=== PATIENT | female | born 1950 | race African-American/Black ===

== ENCOUNTER → 2017-06-29 | Outpatient (CLI) | payer OTHER ==
[~2017-06-29] MED LIST: CARBAMOXIDE15 ML OT; FLONASE 0.05%50 MCG NASAL; HYDROCHLOROTHIA25 M1 PO; MEDROL DOSPAK21 TAB PO; MEDROLDOSEPACK PO; NAPROSYN500 MG PO; NOHOMEMEDICATIONS; NORCO 7.5-3251 EACH PO; POTASSIUM20 PO; TUSSIONEX PENN473 ML PO; VENTOLIN HFA 1818 GM INH; ZOFRAN4 MG PO; ZPAK PO
--- NOTE | ~2017-06-29 | 2DMMODE ---
[facility] [employer] [place] [address] 2 D/M-MODE ECHOCARDIOGRAM Name: YASH BRYANTTTSp LOU Room #: REG [facility]#: [id number] Admission: 06/29/17 Attend Phys: FELIPA Veloz Discharge: Date of : 48 Date of Service: 06/29/17 1552 Report #: [id number] THIS REPORT FOR: //name// APPROVED REPORT Study performed: 06/29/2017 14:58:16 EXAM: Comprehensive 2D, Doppler, and color-flow Echocardiogram Patient Location: Echo lab Status: routine BSA: 1.75 BP: 131/90 mmHg Other Information Study Quality: Adequate Indications Arrhythmia Palpitations 2D Dimensions RVDd: 34.83 mm LVEF(%): 53.58 (>50%) IVSd: 10.55 (7-11mm) LVOT Diam: 19.48 (18-24mm) LVDd: 37.16 mm PWd: 10.65 (7-11mm) Ascending Ao: 30.82 (22-36mm) LVDs: 27.10 (25-40mm) Aortic Root: 25.50 mm IVC: 7.00 mm Jain's LVEF: 53.58 % Volumes Left Atrial Volume (Systole) Single Plane 4CH: 13.92 mL Single Plane 2CH: 20.02 mL LA ESV Index: 11.00 mL/m2 Aortic Valve AoV Peak Can.: 1.36 m/s AO Peak Gr.: 7.44 mmHg LVOT Max P.43 mmHg LVOT Max V: 0.93 m/s JONA Vmax: 2.02 cm2 Mitral Valve E/A Ratio: 0.6 MV Decel. Time: 205.65 ms [facility] [address] [address] 2 D/M-MODE ECHOCARDIOGRAM Name: LOU BRYANT Room #: [facility]#: [id number] Admission: 06/29/17 Attend Phys: FELIPA Veloz Discharge: Date of : 48 Date of Service: 06/29/17 1552 Report #: [id number] MV E Max Can.: 0.55 m/s MV A Can.: 0.87 m/s MV PHT: 59.64 ms IVRT: 128.03 ms Pulmonary Valve PV Peak Can.: 0.83 m/s PV Peak Gr.: 2.78 mmHg Pulmonary Vein P Vein S: 0.74 m/s P Vein A: 0.20 m/s P Vein D: 0.40 m/s P Vein A Dur.: 107.3 msec P Vein S/D Ratio: 1.85 Tricuspid Valve TR Peak Can.: 2.37 m/s RAP Estimate: 5.00 mmHg TR Peak Gr.: 22.38 mmHg Left Ventricle The left ventricle is normal size. There is normal left ventricular wall thickness. The left ventricular systolic function is normal. The left ventricular ejection fraction is within the normal range. LVEF is 55-60%. Mild diastolic dysfunction is present (impaired relaxation pattern). Right Ventricle The right ventricle is normal size. The right ventricular systolic function is normal. Atria The left atrium size is normal. The right atrium size is normal. Aortic Valve The aortic valve is normal in structure. No aortic regurgitation is present. There is no aortic valvular stenosis. Mitral Valve The mitral valve is normal in structure. There is no mitral valve regurgitation noted. No evidence of mitral valve stenosis. Tricuspid Valve The tricuspid valve is normal in structure. There is mild tricuspid regurgitation. The right atrial pressure is estimated at 5 mmHg. PAP is estimated at 27 mmHg. Pulmonic Valve [address] [address] 2 D/M-MODE ECHOCARDIOGRAM Name: ANNETTELOU LOU Room #: REG CL [facility]#: [id number] Admission: 06/29/17 Attend Phys: FELIPA Veloz Discharge: Date of : 48 Date of Service: 06/29/17 1552 Report #: [id number] The pulmonary valve is normal in structure. Trace to mild pulmonic regurgitation. Great Vessels The aortic root is normal in size. IVC is normal in size and collapses >50% with inspiration. <Conclusion> The left ventricle is normal size. There is normal left ventricular wall thickness. The left ventricular systolic function is normal. Mild diastolic dysfunction is present (impaired relaxation pattern). The right ventricle is normal size. The left atrium size is normal. There is no aortic valvular stenosis. The mitral valve is normal in structure. There is mild tricuspid regurgitation. The right atrial pressure is estimated at 5 mmHg. PAP is estimated at 27 mmHg. <ELECTRONICALLY SIGNED> By: Jimy Monge MD 06/29/17 1552 155 155 Jimy Monge MD /INF
== END ==
LOC: CV 10:34
DX: I50.30 Unspecified diastolic (congestive) heart failure (principal); I07.1 Rheumatic tricuspid insufficiency; I49.9 Cardiac arrhythmia, unspecified

== ENCOUNTER 2019-01-11 07:32 | Emergency (ER) | payer OTHER ==
[~2019-01-11] VITALS: Ht 165.1 cm; Wt 60.3 kg
[~2019-01-11 07:32] MED LIST changes: +DOXYCYCLINE 10100 MG PO; +ELIQUIS5 MG PO; +OXYCODONE HCL 55 MG PO; +TOPROL XL25 MG PO
[2019-01-11 08:11] LABS: HEMATOCRIT 41.5 % (37.0-47.0); HEMOGLOBIN 14.2 gm/dL (12.0-15.0); MCH 28.7 pg (26.0-34.0); MCHC 34.3 g/dL (28.0-37.0); MCV 83.5 fL (80.0-100.0); PLATELET COUNT 200 thou/uL (150-400); RBC 4.97 mil/uL (4.20-5.00); RDW 13.3 % (10.5-14.5); WBC 2.3 thou/uL (4.0-11.0)
[2019-01-11 08:18] LABS: ANION GAP 8 mmol/L (7-16); BUN 11 mg/dL (7-18); CHLORIDE 102 mmol/L (98-107); CO2 29 mmol/L (21-32); GLUCOSE 107 mg/dL (74-106); POTASSIUM 3.3 mmol/L (3.5-5.1); SODIUM 139 mmol/L (136-145)
[2019-01-11 08:27] LABS: TROPONIN-I <0.06 ng/mL (<0.06)
[2019-01-11 08:39] LABS: PLATELET ESTIMATE NORMAL
[2019-01-11 09:15] VITALS: BP 97/66
--- NOTE | 2019-01-11 17:26 | EKG ---
[place] [address] [facility] [place] [address] ELECTROCARDIOGRAM REPORT Name: LOU BRYANT [id number] ������������������ Admission: 01/11/19 ������������������ Attend Phys: Discharge: 01/11/19 ������������������ Date of : 48 Report #: [id number] ����������������������������������������������������������������� [id number] THIS REPORT FOR: //name// [facility] ED Test Date: 2019-01-11 Test Time: 08:23:56 Pat Name: LOU BRYANT Department: Room: Gender: F Therapeutic Recreation Assistant: JOSE : 1950 Requested By: Lakhwinder Tripp Order Number: [id number] MD: Moises Cui Measurements Intervals [place] Rate: 88 P: 56 CO: 167 QRS: 7 QRSD: 79 T: -12 QT: 327 QTc: 396 Interpretive Statements Sinus rhythm Abnormal R-wave progression, early transition Borderline T abnormalities, inferior leads Compared to ECG 09/17/2014 15:52:39 No significant change was found Electronically Signed On 01-11-2019 17:26:40 OPERATOR SPECIALIST COMMUNICATIONS by Moises Cui [email or web address] ��������������������������������������������� <ELECTRONICALLY SIGNED> ���������������������������������������� By: Moises Cui MD, [facility] ��������������������������������������������� 01/11/19 1726 0823 08 Moises Cui MD, [facility] /EPI
== END 2019-01-11 09:16 | disposition home or self-care (01) ==
LOC: ER 07:32
PROVIDERS: Emergency Medicine
DX: B34.9 Viral infection, unspecified (principal); I10 Essential (primary) hypertension; Z90.710 Acquired absence of both cervix and uterus; Z88.6 Allergy status to analgesic agent

== ENCOUNTER → 2019-04-12 | Outpatient (CLI) | payer OTHER | LOC: BC 08:38 | DX: Z12.31 Encounter for screening mammogram for malignant neoplasm of breast (principal) ==

== ENCOUNTER → 2019-07-25 | Outpatient (CLI) | payer OTHER ==
[~2019-07-25] VITALS: Ht 165.1 cm; Wt 62.1 kg
--- NOTE | 2019-07-27 10:07 | PATH ---
[facility] [address] [place] [address] PATHOLOGY RPT PROCEDURE Name: MERCEDEZ BRYANT Room #: REG DANIN M.R.#: [id number] ������������������ Admission: 07/25/19 ������������������ Date of : 48 Discharge: Report #: [id number] Path Case #: [id number] [facility] Accession Number: [id number] . 01 Material submitted: . PART A: colon - POLYP AT TRANSVERSE COLON. Modifiers: transverse PART B: sigmoid colon - POLYP AT SIGMOID COLON . 01 Clinical history: . Pre-OP DX: Hx polyps Post-OP DX: Colon polyps . 02 Diagnosis: A. Polyp, transverse colon, endoscopic biopsy: - Tubular adenoma. - Negative for high-grade dysplasia. . B. Polyp, at sigmoid colon, endoscopic biopsy: - Hyperplastic polyp and lymphoid aggregate. - Negative for dysplasia. . (IUV:jose; 07/26/2019) MBR 07/26/2019 1544 Local . 02 Electronically signed: . Pooja Asencio MD, Pathologist NPI- [id number] . 01 Gross description: . A. Received in formalin labeled "Bryant, Mercedez, polyp at transverse colon," is a single segment of shell soft tissue measuring 0.5 cm in maximum dimension. The specimen is entirely submitted in cassette A1. . B. Received in formalin labeled "Bryant, Mercedez, polyp at sigmoid colon," is a single segment of shell soft tissue measuring 0.5 cm in maximum dimension. The specimen is entirely submitted in cassette B1. (TSD; 07/25/2019) TOB/TOB 07/25/2019 1753 Local . 02 Pathologist provided ICD-10: D12.3, K63.5 . 02 CPT . 968118, 720545 Specimen Comment: A courtesy copy of this report has been sent to Specimen Comment: [phone], . Specimen Comment: Report sent to / [place] [address] PATHOLOGY RPT PROCEDURE Name: MERCEDEZ BRYANT [facility] Room #: REG DANNI Sheppard#: [id number] ������������������ Admission: 07/25/19 ������������������ Date of : 48 Discharge: Report #: [id number] Path Case #: [id number] Performed at: [address], [place], [place] [id number] MD Joey Garza MD Phone: [phone] Performed at: [address] [id number] MD Pooja Asencio MD Phone: [phone]
== END | disposition home or self-care (01) ==
LOC: GI 09:59
DX: Z12.11 Encounter for screening for malignant neoplasm of colon (principal); D12.3 Benign neoplasm of transverse colon; K63.5 Polyp of colon; I10 Essential (primary) hypertension; Z90.710 Acquired absence of both cervix and uterus; Z98.890 Other specified postprocedural states; Z86.010 Personal history of colon polyps; Z87.442 Personal history of urinary calculi; Z79.899 Other long term (current) drug therapy; Z88.8 Allergy status to other drugs, medicaments and biological substances
CPT/HCPCS: 62110; 62900

== ENCOUNTER 2019-11-19 22:24 | Emergency (ER) | payer OTHER ==
[~2019-11-19] VITALS: Ht 165.1 cm; Wt 64.0 kg
[2019-11-19] MEDS ORDERED: HYDROCODON-ACE1 EAC8 PO (23:17)
[2019-11-20] MEDS ORDERED: VOLTAREN GEL 1100 G1 TOP (00:27)
[2019-11-20 00:34] VITALS: BP 147/64
== END 2019-11-20 00:46 | disposition home or self-care (01) ==
LOC: ER 22:24
DX: S43.491A Other sprain of right shoulder joint, initial encounter (principal); I10 Essential (primary) hypertension; Z90.710 Acquired absence of both cervix and uterus; Z88.6 Allergy status to analgesic agent; W18.39XA Other fall on same level, initial encounter; Y93.89 Activity, other specified; Y92.89 Other specified places as the place of occurrence of the external cause; Y99.8 Other external cause status

== ENCOUNTER → 2019-11-23 | Outpatient (CLI) | payer OTHER ==
[~2019-11-23] MED LIST changes: +HYDROCODON-ACE1 EAC8 PO; +VOLTAREN GEL 1100 G1 TOP
== END ==
LOC: ULTRA 12:16
DX: M79.89 Other specified soft tissue disorders (principal); M79.621 Pain in right upper arm

== ENCOUNTER → 2019-12-02 | Outpatient (CLI) | payer OTHER | LOC: ULTRA 12:49 | DX: G54.0 Brachial plexus disorders (principal); M79.89 Other specified soft tissue disorders ==

== ENCOUNTER → 2020-04-19 | Outpatient (CLI) | payer OTHER | LOC: RAD 08:08 | PROVIDERS: ATTEND Family Medicine | DX: Z12.31 Encounter for screening mammogram for malignant neoplasm of breast (principal) ==

== ENCOUNTER → 2020-05-01 | Outpatient (CLI) | payer OTHER | LOC: BC 08:55 | PROVIDERS: ATTEND Family Medicine | DX: N60.02 Solitary cyst of left breast (principal); N63.20 Unspecified lump in the left breast, unspecified quadrant ==

== ENCOUNTER 2020-09-25 14:52 | Emergency (ER) | payer OTHER ==
[~2020-09-25] VITALS: Ht 165.1 cm; Wt 61.7 kg
--- NOTE | 2020-09-25 15:53 | EKG ---
[facility] [place] [address] ELECTROCARDIOGRAM REPORT Name: LOU BRYANT Room #: PRE M.R.#: [id number] Admission: Attend Phys: Discharge: Date of : 48 Report #: [id number] THIS REPORT FOR: cc: Milton Alanis James A. DO Santiago, Patrick MD [facility] ~ THIS REPORT FOR: //name// [facility] ED Test Date: 2020-09-25 Test Time: 15:04:47 Pat Name: LOU BRYANT Department: Room: Gender: F Ignition Specialist: : 1950 Requested By: Lakhwinder Tripp Order Number: [id number] MD: Benji Reyna Measurements Intervals [place] Rate: 85 P: 49 [place]: 159 QRS: 15 QRSD: 75 T: 0 QT: 471 QTc: 561 Interpretive Statements Sinus rhythm Probable left atrial enlargement Borderline T abnormalities, diffuse leads Prolonged QT interval Baseline wander in lead(s) V2 Compared to ECG 01/11/2019 08:23:56 Prolonged QT interval now present T-wave abnormality still present Electronically Signed On 09-25-2020 15:53:42 OIL LEASE BROKER by Benji Reyna [email or web address] <ELECTRONICALLY SIGNED> By: Benji Reyna MD, FACC 09/25/20 1553 1504 1504 Benji Reyna MD, FACC /EPI
[2020-09-25 16:22] LABS: ABSOLUTE NEUTROPHILS 3.3 thou/uL (1.4-8.2); BASOPHILS 0.6 % (0.0-2.0); EOSINOPHILS 0.6 % (0.0-3.0); HEMATOCRIT 40.7 % (37.0-47.0); HEMOGLOBIN 13.6 gm/dL (12.0-15.0); LYMPHOCYTES 21.6 % (24.0-44.0); MCH 28.8 pg (26.0-34.0); MCHC 33.4 g/dL (28.0-37.0); MCV 86.1 fL (80.0-100.0); MONOCYTES 4.4 % (1.0-8.0); PLATELET COUNT 218 thou/uL (150-400); POLYS 72.8 % (36.0-66.0); RBC 4.72 mil/uL (4.20-5.00); RDW 13.6 % (10.5-14.5); WBC 4.5 thou/uL (4.0-11.0)
[2020-09-25 16:29] LABS: ANION GAP 3 mmol/L (7-16); BUN 14 mg/dL (7-18); CALCIUM 8.9 mg/dL (8.5-10.1); CHLORIDE 103 mmol/L (98-107); CO2 32 mmol/L (21-32); GLUCOSE 110 mg/dL (74-106); POTASSIUM 3.3 mmol/L (3.5-5.1); SODIUM 138 mmol/L (136-145)
[2020-09-25 16:35] LABS: APTT 24.5 Seconds (24.5-32.8); PROTIME 10.7 Seconds (9.3-11.4)
[2020-09-25 16:39] LABS: ALBUMIN 3.8 g/dL (3.4-5.0); SGOT 16 U/L (15-37); SGPT 15 U/L (30-65); TOTAL BILIRUBIN 0.3 mg/dL (0.2-1.0); TROPONIN-I <0.06 ng/mL (<0.06)
[2020-09-25] MEDS ORDERED: MECLIZINE HCL25 M1 PO (18:04)
[2020-09-25 18:36] VITALS: BP 144/82
== END 2020-09-25 18:37 | disposition home or self-care (01) ==
LOC: ER 14:52
PROVIDERS: Physician Assistant
DX: R42 Dizziness and giddiness (principal); I10 Essential (primary) hypertension; Z90.710 Acquired absence of both cervix and uterus; Z79.899 Other long term (current) drug therapy; Z88.6 Allergy status to analgesic agent

== ENCOUNTER 2020-10-08 16:37 | Inpatient (IN) | payer OTHER ==
[~2020-10-08] VITALS: Ht 165.1 cm; Wt 61.7 kg
--- NOTE | ~2020-10-08 | HC ---
[facility] [place] [address] CONSULTATION Name: LOU BRYANT Room #: 216-P [facility] M.R.#: [id number] Admission: 10/08/20 Attend Phys: Yves Kohli MD Discharge: 10/09/20 Date of : 48 Report #: [id number] THIS REPORT FOR: cc: Milton Alanis James A. DO Khosla, Parveen K. MD ~ DATE OF SERVICE: 10/09/2020 HISTORY OF PRESENT ILLNESS: This is a 70-year-old female patient who was evaluated by me for any neurological etiology for the patient's dizziness. I talked to the Emergency Room physician yesterday and in fact came to see this patient in the Emergency Room, but I was told that they need to see her. In any event, this patient as I understand from the Emergency Room physician was there a week ago, then came back, she was having dizziness. She was having some ambulation difficulty. Some question of nystagmus was noticed in this patient, but subsequently it was found that she does not have any nystagmus. I talked to the physical therapist. We looked at this patient and she indicated that the patient was able to walk reasonably well. The patient is complaining of some symptoms in the right ear. She said she had similar symptoms about 3 years ago and she had a pretty significant dizziness at that time and she also had some ear pain. As an evaluation, she had a CT angiogram of the head and neck. CT and MRI, they were reviewed and they were mostly unremarkable. REVIEW OF SYSTEMS: Positive for atrial fibrillation and she said she is on anticoagulation for that. She has a history of kidney stone, hysterectomy, hypertension, colonoscopy. That was a relevant 14-point review of system. PAST MEDICAL HISTORY: Positive for similar dizziness about 3 years ago associated with ear infection. FAMILY HISTORY: Unremarkable. SOCIAL HISTORY: She drinks alcohol only on special occasions. PHYSICAL EXAMINATION: NEUROLOGIC: Indicate that this patient is alert, responsive, able to follow simple and complex command. Her speech and concentration looks okay. Cranial nerve examination 2-12 looks unremarkable. I did not see any nystagmus. EXTREMITIES: She moves all 4 extremities. There is no loss of position sense. Reflexes are symmetrical. There is no cerebellar sign. There is no papilledema. There is no carotid bruit. Her pulses are palpable. She has no edema. CARDIAC: Examination is difficult to tell because she says she has paroxysmal atrial fibrillation. [address] [address] CONSULTATION Name: LOU BRYANT [facility] Room #: [address] [place] [address] [place] M.R.#: [id number] Admission: 10/08/20 Attend Phys: Yves Kohli MD Discharge: 10/09/20 Date of : 48 Report #: [id number] GENERAL: She is reasonably well-developed individual. She does not have any dysmorphic features of eyes, ears and face. VITAL SIGNS: Blood pressure is 135/76, respirations 18, pulse is 97, temperature is 98.6. LABORATORY DATA: White count is 7.4. Potassium was low, but it is better now. Imaging studies were reviewed and summarized above. IMPRESSION: It is unlikely there is any neurological etiology for the patient's dizziness. I do not think any further neurological workup is needed. I will suggest getting an ENT consult. I will also suggest working and management of systemic problem. We will sign off. Please let me know if further followup is needed. More than 50 minutes of time was spent taking care of this patient today and majority was spent counseling and coordinating. By: 1207 2208 Art Paul MD /nt
[2020-10-08 16:37] VITALS: BP 171/92
[~2020-10-08 16:37] MED LIST changes: +MECLIZINE HCL25 M1 PO
[2020-10-08 17:31] LABS: ABSOLUTE NEUTROPHILS 4.8 thou/uL (1.4-8.2); BASOPHILS 0.4 % (0.0-2.0); HEMATOCRIT 41.5 % (37.0-47.0); HEMOGLOBIN 13.8 gm/dL (12.0-15.0); LYMPHOCYTES 29.7 % (24.0-44.0); MCH 28.9 pg (26.0-34.0); MCHC 33.4 g/dL (28.0-37.0); MCV 86.7 fL (80.0-100.0); PLATELET COUNT 278 thou/uL (150-400); POLYS 64.9 % (36.0-66.0); RBC 4.79 mil/uL (4.20-5.00); RDW 13.4 % (10.5-14.5); WBC 7.4 thou/uL (4.0-11.0)
[2020-10-08 17:47] LABS: ALBUMIN 3.8 g/dL (3.4-5.0); CALCIUM 8.7 mg/dL (8.5-10.1); CREATININE 0.9 mg/dL (0.6-1.0); TOTAL BILIRUBIN 0.5 mg/dL (0.2-1.0); TOTAL PROTEIN 8.3 g/dL (6.4-8.2)
[2020-10-08 17:58] LABS: POTASSIUM 2.8 mmol/L (3.5-5.1)
[2020-10-08 18:16] LABS: URINE BILIRUBIN NEGATIVE (Negative); URINE BLOOD NEGATIVE (Negative); URINE CLARITY CLEAR; URINE COLOR YELLOW; URINE GLUCOSE-RANDOM* NEGATIVE (Negative); URINE KETONES NEGATIVE (Negative); URINE NITRITE-REFLEX NEGATIVE (Negative); URINE PROTEIN (DIPSTICK) NEGATIVE (Negative); URINE SPECIFIC GRAVITY 1.015 (1.005-1.035); URINE UROBILINOGEN 0.2 E.U./dl (0.2-1.0)
[2020-10-08 18:23] LABS: URINE LEUKOCYTES-REFLEX 2+ (Negative)
[2020-10-08 18:24] LABS: CASTS None Seen /LPF (None Seen); CRYSTALS None Seen /LPF (None Seen); SQUAMOUS >10 Many /LPF (0-3); URINE RBC None Seen /HPF (0-2); URINE WBC-REFLEX 6-15 Few /HPF (0-5)
[2020-10-08 20:39] VITALS: BP 145/88
[2020-10-08 21:20] VITALS: BP 134/74
[2020-10-08 21:40] VITALS: BP 138/88
[2020-10-09 00:18] VITALS: BP 139/83
--- NOTE | 2020-10-09 03:35 | NUR ---
PT NEW ADMIT OF LAST NIGHT. ALERT AND ORIENTED. VITALS STABLE. DENIES NAUSEA VOMITING DIARRHEA OR CHEST PAIN. PT C/O OF MILD DIZZINESS BUT " NOT LIKE I FELT EARLIER, ROOM SPINNING OR SUCH.". ASSESSMENTS DOCUMENTED. NO C/O SOB. RESTING THROUGH THE NIGHT AND POSSIBLE MRI THIS AM. ADMIT NIH SCORE OF ZERO. DENIES VISUAL CHANGES. WILL CONTINUE TO MONITOR AND FOLLOW POC.
[2020-10-09 04:09] VITALS: BP 135/76
[2020-10-09 05:50] LABS: ANION GAP 12 mmol/L (7-16); BUN 13 mg/dL (7-18); CALCIUM 9.1 mg/dL (8.5-10.1); CHLORIDE 104 mmol/L (98-107); CHOLESTEROL 219 mg/dL (<200); CO2 23 mmol/L (21-32); CREATININE 0.9 mg/dL (0.6-1.0); GLUCOSE 141 mg/dL (74-106); HDL CHOLESTEROL 95 mg/dL (>40); LDL CHOLESTEROL 117 mg/dL (<100); MAGNESIUM 2.3 mg/dL (1.8-2.4); SODIUM 139 mmol/L (136-145); TC:HDL 2.3 Ratio (Not establshd); TRIGLYCERIDE 35 mg/dL (<150); VLDL 7 mg/dL (<40)
[2020-10-09 05:53] LABS: POTASSIUM 4.6 mmol/L (3.5-5.1); SERUM ASSESSMENT Clear
--- NOTE | 2020-10-09 07:25 | EKG ---
[facility] [address] [address] ELECTROCARDIOGRAM REPORT Name: LOU BRYANT Room #: 216-P ADM IN M.R.#: [id number] Admission: 10/08/20 Attend Phys: Yves Kohli MD Discharge: Date of : 48 Report #: [id number] THIS REPORT FOR: cc: Milton Alanis James A. DO Santiago, Patrick MD [facility] ~ THIS REPORT FOR: //name// [facility] ED Test Date: 2020-10-08 Test Time: 19:28:33 Pat Name: LOU BRYANT Department: Room: 216 Gender: F Analytics Developer: JAIMEE VENEGAS : 1950 Requested By: Calvin Patel Order Number: [id number] MD: Benji Reyna Measurements Intervals [place] Rate: 80 P: 60 MS: 159 QRS: 17 QRSD: 87 T: 1 QT: 381 QTc: 440 Interpretive Statements Sinus rhythm Multiple ventricular premature complexes Left atrial enlargement Probable left ventricular hypertrophy Compared to ECG 09/25/2020 15:04:47 Ventricular premature complex(es) now present T-wave abnormality no longer present Prolonged QT interval no longer present Electronically Signed On 10-09-2020 7:25:17 CLUBHOUSE MANAGER by Benji Reyna [email or web address] <ELECTRONICALLY SIGNED> By: Benji Reyna MD, [facility] 10/09/20 0725 27 27 Benji Reyna MD, [facility] /EPI
[2020-10-09 08:16] VITALS: BP 132/65
[2020-10-09 11:50] VITALS: BP 120/65
[2020-10-09] MEDS ORDERED: MECLIZINE HCL25 MG PO (13:45)
--- NOTE | 2020-10-09 13:58 | NUR ---
ASSUMED CARE AT [facility] CHANGE, ALERT AND ORIENTED 4, AND VSS. ASSESSMENT CHARTED, C/O OF HEADACHE AND DIZZINESS. DR WADDELL NOTIFIED. AND WILL CONTINUE WITH POC.
[2020-10-09] MEDS ORDERED: CEFPODOXIME PR200 M1 PO ×2 (14:04→14:16)
[2020-10-09 14:55] VITALS: BP 135/76
[2020-10-10 01:06] LABS: GLYCOHEMOGLOBIN (HGB A1C) 5.4 % (4.8-5.6)
== END 2020-10-09 17:07 | disposition home or self-care (01) | DRG 153 ==
LOC: ER 16:37 → EROBS 20:13 → 2N 20:13
PROVIDERS: Emergency Medicine; Nurse Practitioner Family; ADMIT Internal Medicine; ATTEND Internal Medicine
DX: H66.91 Otitis media, unspecified, right ear (principal); N39.0 Urinary tract infection, site not specified; I10 Essential (primary) hypertension; R27.8 Other lack of coordination; I48.91 Unspecified atrial fibrillation; E87.6 Hypokalemia; Z90.710 Acquired absence of both cervix and uterus; Z87.442 Personal history of urinary calculi; Z88.6 Allergy status to analgesic agent; Z79.01 Long term (current) use of anticoagulants; Z79.899 Other long term (current) drug therapy
CPT/HCPCS: 10081

== ENCOUNTER 2020-10-14 17:25 | Emergency (ER) | payer OTHER ==
[~2020-10-14] VITALS: Ht 165.1 cm; Wt 63.5 kg
[~2020-10-14 17:25] MED LIST changes: +CEFPODOXIME PR200 M1 PO; +MECLIZINE HCL25 MG PO
[2020-10-14 22:57] VITALS: BP 142/76
--- NOTE | 2020-10-15 12:51 | EKG ---
[facility] [place] [address] ELECTROCARDIOGRAM REPORT Name: LOU BRYANT [facility] [id number] Admission: 10/14/20 Attend Phys: Discharge: 10/14/20 Date of : 48 Report #: [id number] THIS REPORT FOR: cc: Milton Alanis James A. DO Santiago, Patrick MD [facility] ~ THIS REPORT FOR: //name// [facility] ED Test Date: 2020-10-14 Test Time: 17:35:12 Pat Name: LOU BRYANT Department: Room: Gender: F Developing Machine Operator: PRATEEK : 1950 Requested By: Arden Orellana Order Number: [id number] MD: Benji Reyna Measurements Intervals [place] Rate: 98 P: 5 [place]: 158 QRS: -5 QRSD: 81 T: 9 QT: 351 QTc: 449 Interpretive Statements Sinus rhythm Borderline T wave abnormalities Compared to ECG 10/08/2020 19:28:33 T-wave abnormality now present Ventricular premature complex(es) no longer present Atrial abnormality no longer present Electronically Signed On 10-15-2020 12:51:28 METER REPAIR SHOP SUPERVISOR by Benji Reyna [email or web address] <ELECTRONICALLY SIGNED> By: Benji Reyna MD, FACC 10/15/20 1251 1735 1735 Benji Reyna MD, FAC /EPI
== END 2020-10-14 20:59 | disposition home or self-care (01) ==
LOC: ER 17:25
DX: R42 Dizziness and giddiness (principal); I10 Essential (primary) hypertension; Z90.710 Acquired absence of both cervix and uterus; Z79.899 Other long term (current) drug therapy; Z88.6 Allergy status to analgesic agent

== ENCOUNTER → 2020-10-19 | Outpatient (CLI) | payer OTHER | LOC: SJCVC 10:23 | PROVIDERS: ATTEND Internal Medicine | DX: R42 Dizziness and giddiness (principal); I48.0 Paroxysmal atrial fibrillation; E78.5 Hyperlipidemia, unspecified; I10 Essential (primary) hypertension; Z79.82 Long term (current) use of aspirin; Z79.899 Other long term (current) drug therapy; Z86.73 Personal history of transient ischemic attack (TIA), and cerebral infarction without residual deficits ==

== ENCOUNTER → 2021-05-06 | Outpatient (CLI) | payer OTHER ==
[~2021-05-06] VITALS: Ht 165.1 cm; Wt 63.0 kg
--- NOTE | 2021-05-09 17:07 | PATH ---
[facility] [address] [place] [address] PATHOLOGY RPT PROCEDURE Name: MERCEDEZ BRYANT Room #: REG DANNI Fuller.#: [id number] Admission: 05/06/21 Date of : 48 Discharge: Report #: [id number] Path Case #: [id number] [facility] Accession Number: [id number] . 01 Material submitted: . gastrointestinal site - RANDOM GASTRIC RULE OUT H PYLORI . 01 Clinical history: . EGD ABDOMINAL PAIN/EPIGASTRIC PAIN NORMAL EGD . 02 Diagnosis: Gastric mucosa, random gastric, endoscopic biopsy: - Mild chronic gastritis with features of reactive gastropathy. - Negative for intestinal metaplasia or atrophy. - Negative for Helicobacter pylori (properly controlled immunohistochemical stain performed). (IUV:pit; 05/09/2021) . P 05/09/2021 1508 Local . 02 Electronically signed: . Pooja Asencio MD, Pathologist NPI- [id number] . 01 Gross description: . The specimen is received in formalin, labeled "Mercedez Bryant, random gastric". Received are multiple segments of pale shell tissue ranging in size from 0.3-0.6 cm in maximum dimensions. The specimen is submitted entirely in cassette A1. (CAA; 05/08/2021) QA/QA 05/08/2021 1331 Local . 02 Pathologist provided ICD-10: K29.50 . 02 CPT . 132215, [id number] Specimen Comment: A courtesy copy of this report has been sent to [phone] Specimen Comment: [phone] Specimen Comment: Report sent to / DR BURNETT Performed at: [address] [facility] [address] [facility] [address], [place] [id number] MD Raimundo Wong MD Phone: [phone] [address] [address] PATHOLOGY RPT PROCEDURE Name: MERCEDEZ BRYANT Room #: REG [facility] [id number] Admission: 05/06/21 Date of : 48 Discharge: Report #: [id number] Path Case #: [id number] Performed at: [address] [id number] MD Pooja Asencio MD Phone: [phone]
== END | disposition home or self-care (01) ==
LOC: GI 07:53
PROVIDERS: ATTEND Internal Medicine Gastroenterology
DX: R10.13 Epigastric pain (principal); K29.50 Unspecified chronic gastritis without bleeding; K31.9 Disease of stomach and duodenum, unspecified; R11.0 Nausea; K57.10 Diverticulosis of small intestine without perforation or abscess without bleeding; I10 Essential (primary) hypertension; I48.91 Unspecified atrial fibrillation; Z98.890 Other specified postprocedural states; Z79.899 Other long term (current) drug therapy; Z79.01 Long term (current) use of anticoagulants; Z87.19 Personal history of other diseases of the digestive system; Z90.710 Acquired absence of both cervix and uterus; Z87.442 Personal history of urinary calculi; Z88.8 Allergy status to other drugs, medicaments and biological substances
CPT/HCPCS: 62110; 62900

== ENCOUNTER → 2021-07-29 | Outpatient (CLI) | payer OTHER | LOC: BC 09:12 | PROVIDERS: ATTEND Nurse Practitioner | DX: Z12.31 Encounter for screening mammogram for malignant neoplasm of breast (principal); N64.89 Other specified disorders of breast; R22.1 Localized swelling, mass and lump, neck ==